=== PATIENT | female | born 1940 | race Caucasian/White ===

== ENCOUNTER 2020-02-11 14:27 | Emergency (ER) | payer OTHER ==
[~2020-02-11] VITALS: Ht 157.5 cm; Wt 68.0 kg
--- OUTSIDE RECORDS SUMMARY | ~2020-02-11 | XMS ---
Demographics + + + | Address | [address] | | | [place] [address] | + + + | Preferred Language | Unknown | + + + | Marital Status | Unknown | + + + | Zoroastrian Affiliation | Unknown | + + + | Race | Unknown | + + + | Ethnic Group | Unknown | + + + Author + + + | Author | [facility] | + + + | Organization | [facility] | + + + | Address | [address] | | | [place] [address] | + + + | Phone | | + + + Care Team Providers + + + + | Care Fireworks Assembler Name | Role | Phone | + + + + Unavailable | Unavailable | + + + + PROBLEMS +---------+ + + +--------+ + + | Type | Condition | ICD9-CM | [id number] | Onset | Condition | SNOMED | | | | Code | Code | Dates | Status | Code | +---------+ + + +--------+ + + | Problem | Hiatal | 553.3 | | | Active | 29402735 | | | hernia | | | | | | +---------+ + + +--------+ + + | Problem | Hyperlipid | | E78.5 | | Active | 24507209 | | | emia | | | | | | +---------+ + + +--------+ + + | Problem | CHF | | I50.9 | | Active | 74630793 | | | (congestiv | | | | | | | | e heart | | | | | | | | failure) | | | | | | +---------+ + + +--------+ + + | Problem | Hypokalemi | 276.8 | | | Active | 11182672 | | | a | | | | | | +---------+ + + +--------+ + + | Problem | Generalize | 782.3 | | | Active | 09649720 | | | d edema | | | | | | +---------+ + + +--------+ + + | Problem | Hypertensi | | I10 | | Active | 76662122 | | | on | | | | | | +---------+ + + +--------+ + + | Problem | Iron | | D50.9 | | Active | 60376471 | | | deficiency | | | | | | | | anemia | | | | | | +---------+ + + +--------+ + + ALLERGIES + + + + +--------+ | Substance | Reaction | Event Type | Date | Status | + + + + +--------+ | Penicillin | Unknown | Drug Allergy | Jul, | Active | + + + + +--------+ SOCIAL HISTORY Never Assessed PLAN OF CARE + +---------+ | Activity | Details | + +---------+ +---+ | | +---+ + + + | Follow Up | 3 Months Reason:null | + + + | Pending Test | CBC, Platelet; No Differential | + + + | Pending Test | Comp. Metabolic Panel (14) | + + + | Pending Test | Lipid Panel | + + + VITAL SIGNS + + + + | Height | 61 in | 2017-07-13 | + + + + | Weight | 158 lbs | 2017-07-13 | + + + + | BMI | 29.85 kg/m2 | 2017-07-13 | + + + + | Temperature | 97.8 degrees Fahrenheit | 2017-07-13 | + + + + | Heart Rate | 74 /min | 2017-07-13 | + + + + | Blood pressure systolic | 180 mm Hg | 2017-07-13 | + + + + | Blood pressure diastolic | 97 mm Hg | 2017-07-13 | + + + + MEDICATIONS + + + + + + + +--------+ | Medicati | Instruct | Dosage | Frequenc | Start | End Date | Duration | Status | | on | ions | | y | Date | | | | + + + + + + + +--------+ | Aspir-81 | Orally | 1 tablet | 24h | | | | Active | | 81 MG | Once a | | | | | | | | | day | | | | | | | + + + + + + + +--------+ | Zyrtec | Orally | 1 tablet | 24h | | | | Active | | Allergy | Once a | | | | | | | | 10 MG | day | | | | | | | + + + + + + + +--------+ | Multivit | | | | | | | Active | | amins | | | | | | | | + + + + + + + +--------+ | Iron 325 | Orally | 1 tablet | 12h | | | 30 days | Active | | (65 Fe) | Twice a | | | | | | | | MG | day | | | | | | | + + + + + + + +--------+ | PreserVi | | | | | | | Active | | reece | | | | | | | | | AREDS | | | | | | | | + + + + + + + +--------+ | Carvedil | p.o. bid | 1 tab(s) | 12h | 11 Sep, | | 30 | Active | | ol 12.5 | | | | 2017 | | | | | MG | | | | | | | | + + + + + + + +--------+ RESULTS No Results PROCEDURES + + +--------+ + | Procedure | Date Ordered | Result | Body Site | + + +--------+ + | [facility] MED/CURRENT | Jul 13, 2017 | | | | MED MERGE | | | | + + +--------+ + | DOC MEDS VERIFIED | Jul 13, 2017 | | | | W/PT OR RE | | | | + + +--------+ + IMMUNIZATIONS No Known Immunizations MEDICAL (GENERAL) HISTORY + + +--------+ | Type | Description | Date | + + +--------+ | Medical History | seasonal allergies | | + + +--------+ | Medical History | CHF | | + + +--------+ | Medical History | cataracts | | + + +--------+ | Medical History | Anemia, iron deficiency, | | | | inadequate dietary intake | | + + +--------+ | Medical History | hypertension | | + + +--------+ | Surgical History | diverticulitis- Removed a | 2009 | | | small section of colon at | | | | that time. | | + + +--------+ | Surgical History | Tubal Ligation | | + + +--------+ | Surgical History | Left eye cataract surgery | | + + +--------+ | Hospitalization History | CHF, [place], Cardiomyopathy, | 02/2015 | | | electrolyte imbalance -[facility] | | + + +--------+"
[~2020-02-11 14:27] MED LIST: ASPIRIN81 MG PO; BENADRYL25 MG PO; CITRUS CALCIUM +1 EA PO; FERROUS SULFAT325 MG PO; FUROSEMIDE20 MG PO; K-TAB ER20 MEQ PO; LASIX20 MG PO; MAG-OXIDE400 MG PO; THERA1 EACH PO; TOPROL XL25 MG PO; VITAMIN C250 MG PO; VITAMIN C500 M2 PO; ZESTRIL2.5 MG PO; ZYRTEC10 MG PO
[2020-02-11] MEDS ORDERED: B-1100 MG PO (15:53)
[2020-02-11] MEDS ORDERED: MAGNESIUM400 MG PO (15:53)
--- NOTE | 2020-02-11 23:10 | EKG ---
[facility] [address] [place] [address] Signed Sinus rhythm with 1st degree AV block Left axis deviation Incomplete left bundle branch block ST \T\ T wave abnormality, consider inferolateral ischemia Prolonged QT Abnormal ECG No previous ECGs available Confirmed by ADILIA RINALDI MD ([id number]) on 02/11/2020 11:10:21 PM Electronically Signed By: ADILIA RINALDI MD 02/11/20 2310 PATIENT NAME: SAYDA ROSA Electrocardiogram DATE OF : 38 PHYSICIAN: ADILIA RINALDI MD REPORT #: [id number] REPORT IS CONFIDENTIAL AND NOT TO BE RELEASED WITHOUT AUTHORIZATION
== END 2020-02-11 17:36 | disposition home or self-care (01) ==
LOC: ED 14:27
PROC: 0T9B70Z Drainage of Bladder with Drainage Device, Via Natural or Artificial Opening (ICD-10-PCS; principal; 2020-02-11)
DX: R53.1 Weakness (principal); F10.129 Alcohol abuse with intoxication, unspecified; E46 Unspecified protein-calorie malnutrition; D64.9 Anemia, unspecified; Z88.0 Allergy status to penicillin; Z79.899 Other long term (current) drug therapy; Z79.82 Long term (current) use of aspirin; Y90.6 Blood alcohol level of 120-199 mg/100 ml
CPT/HCPCS: 51701; 80053; 81001; 83735; 84484; 85025; 93005; 93010; 96368; 99285-25; G0480; J2405; J3411; J3475; J7030; J7040

== ENCOUNTER 2020-02-15 12:55 | Emergency (ER) | payer MEDICARE ==
[~2020-02-15] VITALS: Ht 157.5 cm; Wt 68.0 kg
[~2020-02-15 12:55] MED LIST changes: +B-1100 MG PO; +MAGNESIUM400 MG PO
--- OUTSIDE RECORDS SUMMARY | 2020-02-15 12:58 | XMS ---
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 Frank has no Care Guidelines for this patient. [facility]12 MO.) [facility] T[facility] NOTE: Visits indicate total known visits. ED/C VISIT TRACKING (12 MO.) 02/15/2020 12:56 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
[2020-02-15] MEDS ORDERED: ONDANSETRON ODT4 MG PO (15:57)
--- NOTE | 2020-02-16 16:44 | EKG ---
[facility] [address] [facility] [place] [address] Signed Sinus rhythm with 1st degree AV block Left axis deviation Nonspecific ST and T wave abnormality Prolonged QT Abnormal ECG When compared with ECG of 11-FEB-2020 14:55, Nonspecific T wave abnormality has replaced inverted T waves in Lateral leads Confirmed by RANDALL MARTE MD ([id number]) on 02/16/2020 4:44:24 PM Electronically Signed By: RANDALL MARTE MD 02/16/20 1644 PATIENT NAME: SHELLEYSAYDA Electrocardiogram DATE OF : 38 PHYSICIAN: RANDALL MARTE MD REPORT #: [id number] REPORT IS CONFIDENTIAL AND NOT TO BE RELEASED WITHOUT AUTHORIZATION
== END 2020-02-15 16:25 | disposition home or self-care (01) ==
LOC: ED 12:55
DX: K52.9 Noninfective gastroenteritis and colitis, unspecified (principal); M25.551 Pain in right hip; F10.10 Alcohol abuse, uncomplicated; D64.9 Anemia, unspecified; Z88.0 Allergy status to penicillin; Z79.899 Other long term (current) drug therapy
CPT/HCPCS: 71045; 73502; 80053; 83735; 84484; 85025; 93005; 93010; 96365; 96366; 96375; 99285-25; J2405; J3411; J7030

== ENCOUNTER 2020-02-23 12:01 | Emergency (ER) | payer MEDICARE ==
[~2020-02-23] VITALS: Ht 157.5 cm; Wt 68.0 kg
[~2020-02-23 12:01] MED LIST changes: +ONDANSETRON ODT4 MG PO
--- OUTSIDE RECORDS SUMMARY | 2020-02-23 12:04 | XMS ---
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 Frank has no Care Guidelines for this patient. [facility] T[facility] NOTE: Visits indicate total known visits. ED/C VISIT TRACKING (12 MO.) 02/23/2020 12:01 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
== END 2020-02-23 16:52 | disposition short-term general hospital (02) ==
LOC: ED 12:01
DX: N17.9 Acute kidney failure, unspecified (principal); F10.239 Alcohol dependence with withdrawal, unspecified; Z88.0 Allergy status to penicillin; Z79.899 Other long term (current) drug therapy
CPT/HCPCS: 51702; 71045; 80053; 81001; 83735; 84484; 85025; 99285-25; J7030; J7121